=== PATIENT | male | born 1985 | race Caucasian/White ===

== ENCOUNTER 2018-03-04 00:51 | Emergency (ER) | payer SELFPAY ==
--- NOTE | 2018-03-04 01:39 | EDPHYS ---
Physician Documentation [facility] Name: Ben Dumont Age: 32 yrs Sex: Male : 1985 Arrival Date: 03/04/2018 Time: 00:53 Bed 6 Private MD: ED Physician Jhony Mora HPI: 03/04 01:54 This 32 yrs old Male presents to ER via Ambulatory with complaints of Abscess.snw 01:54 The patient presents with an abscess of the back of neck. Description: The affected snw area is small, well demarcated, mobile. Onset: The symptoms/episode began/occurred gradually. Associated signs and symptoms: The patient has no apparent associated signs or symptoms. The symptoms are located on the left trapezius. 01:56 Possible cause(s): unknown. Severity of symptoms: At their worst the symptoms were snw moderate. The patient has not experienced similar symptoms in the past. It is unknown whether or not the patient has recently seen a physician. Historical: - Allergies: 01:14 No Known Allergies; bp - Home Meds: 01:14 None [Active]; bp - PMHx: 01:14 None; bp - Immunization history:: Adult Immunizations up to date. - Social history:: Smoking status: Patient uses tobacco products, smokes one-half pack cigarettes per day. - Ebola Screening: : Patient negative for fever greater than or equal to 101.5 degrees Fahrenheit, and additional compatible Ebola Virus Disease symptoms Patient denies exposure to infectious person Patient denies travel to an Ebola-affected area in the 21 days before illness onset No symptoms or risks identified at this time. ROS: 01:52 Constitutional: Negative for fever, chills, and weight loss, Eyes: Negative for injury, snw pain, redness, and discharge, ENT: Negative for injury, pain, and discharge, Neck: Negative for injury, pain, and swelling, Cardiovascular: Negative for chest pain, palpitations, and edema, Respiratory: Negative for shortness of breath, cough, wheezing, and pleuritic chest pain, Abdomen/GI: Negative for abdominal pain, nausea, vomiting, diarrhea, and constipation, Back: Negative for injury and pain, : Negative for injury, bleeding, discharge, and swelling, MS/Extremity: Negative for injury and deformity, Neuro: Negative for headache, weakness, numbness, tingling, and seizure, Psych: Negative for depression, anxiety, suicide ideation, homicidal ideation, and hallucinations. 01:52 Skin: Positive for abscess, of the left posterior upper chest wall. Exam: 01:47 Constitutional: This is a well developed, well nourished patient who is awake, alert, snw and in no acute distress. Head/Face: Normocephalic, atraumatic. Eyes: Pupils equal round and reactive to light, extra-ocular motions intact. Lids and lashes normal. Conjunctiva and sclera are non-icteric and not injected. Cornea within normal limits. Periorbital areas with no swelling, redness, or edema. ENT: Nares patent. No nasal discharge, no septal abnormalities noted. Tympanic membranes are normal and external auditory canals are clear. Oropharynx with no redness, swelling, or masses, exudates, or evidence of obstruction, uvula midline. Mucous membranes moist. Neck: Trachea midline, no thyromegaly or masses palpated, and no cervical lymphadenopathy. Supple, full range of motion without nuchal rigidity, or vertebral point tenderness. No Meningismus. Chest/axilla: Normal chest wall appearance and motion. Nontender with no deformity. No lesions are appreciated. Cardiovascular: Regular rate and rhythm with a normal S1 and S2. No gallops, murmurs, or rubs. Normal PMI, no JVD. No pulse deficits. Respiratory: Lungs have equal breath sounds bilaterally, clear to auscultation and percussion. No rales, rhonchi or wheezes noted. No increased work of breathing, no retractions or nasal flaring. Abdomen/GI: Soft, non-tender, with normal bowel sounds. No distension or tympany. No guarding or rebound. No evidence of tenderness throughout. Back: No spinal tenderness. No costovertebral tenderness. Full range of motion. MS/ Extremity: Pulses equal, no cyanosis. Neurovascular intact. Full, normal range of motion. Neuro: Awake and alert, GCS 15, oriented to person, place, time, and situation. Cranial nerves II-XII grossly intact. Motor strength 5/5 in all extremities. Sensory grossly intact. Cerebellar exam normal. Normal gait. 01:47 Skin: Appearance: normal except for affected area, epidermal cyst without erythema to left upper medial shoulder area. Vital Signs: 01:14 BP 133 / 86; Pulse 86; Resp 14; Temp 98.6; Pulse Ox 95% ; Weight 101.6 kg; Height 5 ft. bp 7 in. (170.18 cm); 01:30 BP 126 / 82; Pulse 85; Resp 16 S; Pulse Ox 95% on R/A; cc3 01:14 Body Mass Index 35.08 (101.60 kg, 170.18 cm) bp MDM: 01:18 Patient medically screened. snw 01:53 Data reviewed: vital signs, nurses notes. Data interpreted: Pulse oximetry: on room air snw is 95 %. Interpretation: acceptable. Counseling: I had a detailed discussion with the patient and/or guardian regarding: the historical points, exam findings, and any diagnostic results supporting the discharge/admit diagnosis, the need for outpatient follow up, to return to the emergency department if symptoms worsen or persist or if there are any questions or concerns that arise at home. Special discussion: Based on the history and exam findings, there is no indication for further emergent testing or inpatient evaluation. I discussed with the patient/guardian the need to see the general surgeon for further evaluation of the symptoms. I discussed with the patient/guardian the need to see the primary care provider for further evaluation of the symptoms. Administered Medications: 01:45 Drug: Doxycycline 100 mg Route: PO; cc3 01:55 Follow up: Response: No adverse reaction cc3 01:45 Drug: Motrin 600 mg Route: PO; cc3 01:55 Follow up: Response: No adverse reaction cc3 Disposition: 03/04/18 01:38 Discharged to Home. Impression: Epidermal cyst. - Condition is Stable. - Discharge Instructions: Epidermal Cyst, Steps to Quit Smoking, Smoking Hazards, Excision of Skin Lesions, Heat Therapy. - Prescriptions for Doxycycline Hyclate 100 mg Oral Tablet - take 1 tablet by ORAL route every 12 hours; 20 tablet. Diclofenac Sodium 75 mg Oral Tablet Sustained Release - take 1 tablet by ORAL route 2 times per day; 30 tablet. Albuterol Sulfate 90 mcg/actuation - inhale 1-2 puff by INHALATION route every 4-6 hours; 1 Inhaler. - Medication Reconciliation Form, Thank You Letter, Antibiotic Education, Prescription Opioid Use form. - Follow up: Private Physician; When: 2 - 3 days; Reason: Recheck today's complaints, Continuance of care, Re-evaluation by your physician. Follow up: Emergency Department; When: As needed; Reason: Worsening of condition. Addendum: 03/05/2018 23:11 Co-signature as Attending Physician, Jhony Mora MD. g s Signatures: Lisa Raines, PACKAGING MECHANIC-C PACKAGING MECHANIC-Csnw Jhony Mora MD MD Bonifacio Muller, RN RN bp Christine Kim cc3 Corrections: (The following items were deleted from the chart) 03/04 01:59 01:38 03/04/2018 01:38 Discharged to Home. Impression: Epidermal cyst. Condition is cc3 Stable. Forms are Medication Reconciliation Form, Thank You Letter, Antibiotic Education, Prescription Opioid Use. Follow up: Private Physician; When: 2 - 3 days; Reason: Recheck today's complaints, Continuance of care, Re-evaluation by your physician. Follow up: Emergency Department; When: As needed; Reason: Worsening of condition. snw
--- NOTE | 2018-03-04 01:39 | ER ---
Nurse's Notes [facility] Name: Ben Dumont Age: 32 yrs Sex: Male : 1985 Arrival Date: 03/04/2018 Time: 00:53 Bed 6 Private MD: Diagnosis: Epidermal cyst Presentation: 03/04 01:13 Presenting complaint: Patient states: 1.5cm MASS TO CERVICAL AREA. Transition of care: bp patient was not received from another setting of care. Onset of symptoms is unknown. Risk Assessment: Do you want to hurt yourself or someone else? Patient reports no desire to harm self or others. Initial Sepsis Screen: Does the patient meet any 2 criteria? No. Patient's initial sepsis screen is negative. Does the patient have a suspected source of infection? No. Patient's initial sepsis screen is negative. Care prior to arrival: None. 01:13 Method Of Arrival: Ambulatory bp 01:13 Acuity: DAYDAY 3 bp Triage Assessment: 01:14 General: Appears in no apparent distress. comfortable, Behavior is calm, cooperative, bp appropriate for age. Pain: Complains of pain in back of neck. EENT: No deficits noted. Neuro: Level of Consciousness is awake, alert, obeys commands, Oriented to person, place, time, situation, Appropriate for age. Cardiovascular: No deficits noted. Respiratory: Airway is patent Respiratory effort is even, unlabored, Respiratory pattern is regular, symmetrical. GI: No signs and/or symptoms were reported involving the gastrointestinal system. : No signs and/or symptoms were reported regarding the genitourinary system. Derm: Abscess located on back of neck is quarter sized, has no drainage. Musculoskeletal: Circulation, motion, and sensation intact. Range of motion: intact in all extremities. Historical: - Allergies: 01:14 No Known Allergies; bp - Home Meds: 01:14 None [Active]; bp - PMHx: 01:14 None; bp - Immunization history:: Adult Immunizations up to date. - Social history:: Smoking status: Patient uses tobacco products, smokes one-half pack cigarettes per day. - Ebola Screening: : Patient negative for fever greater than or equal to 101.5 degrees Fahrenheit, and additional compatible Ebola Virus Disease symptoms Patient denies exposure to infectious person Patient denies travel to an Ebola-affected area in the 21 days before illness onset No symptoms or risks identified at this time. Screenin:18 Abuse screen: Denies threats or abuse. Denies injuries from another. Nutritional bp screening: No deficits noted. Tuberculosis screening: No symptoms or risk factors identified. Fall Risk None identified. Assessment: 01:17 General: SEE TRIAGE NOTE. STATES INCREASE SIZE/PAIN x2 DAYS, NO BLEEDING OR DRAINAGE. bp 01:55 Reassessment: Patient appears in no apparent distress at this time. Patient and/or cc3 family updated on plan of care and expected duration. Pain level reassessed. Patient is alert, oriented x 3, equal unlabored respirations, skin warm/dry/pink. Patient discharged home, went out of ER vitally stable and ambulatory. Vital Signs: 01:14 BP 133 / 86; Pulse 86; Resp 14; Temp 98.6; Pulse Ox 95% ; Weight 101.6 kg; Height 5 ft. bp 7 in. (170.18 cm); 01:30 BP 126 / 82; Pulse 85; Resp 16 S; Pulse Ox 95% on R/A; cc3 01:14 Body Mass Index 35.08 (101.60 kg, 170.18 cm) bp ED Course: 00:53 Patient arrived in ED. am2 01:13 Bonifacio Muller, WINDY is Primary Nurse. bp 01:14 Triage completed. bp 01:14 Arm band placed on. bp 01:18 Lisa Raines FNP-C is PHCP. snw 01:18 Jhony Mora MD is Attending Physician. snw 01:18 Patient has correct armband on for positive identification. Bed in low position. Call bp light in reach. Side rails up X2. 01:55 No provider procedures requiring assistance completed. Patient did not have IV access cc3 during this emergency room visit. Administered Medications: 01:45 Drug: Doxycycline 100 mg Route: PO; cc3 01:55 Follow up: Response: No adverse reaction cc3 01:45 Drug: Motrin 600 mg Route: PO; cc3 01:55 Follow up: Response: No adverse reaction cc3 Outcome: 01:38 Discharge ordered by . snw 01:55 Discharged to home ambulatory. cc3 01:55 Condition: stable 01:55 Discharge instructions given to patient, Instructed on discharge instructions, follow up and referral plans. medication usage, Demonstrated understanding of instructions, follow-up care, medications, Prescriptions given X 3. 01:59 Patient left the ED. cc3 Signatures: Lisa Raines, CONTENT STRATEGIST-C CONTENT STRATEGIST-Csnw Karin Roldan am2 Bonifacio Muller, RN RN Christine Mata cc3
[2018-03-04] MEDS ORDERED: IBUPROFEN 400 MG TAB ONE (01:50)
[2018-03-04] MEDS ORDERED: IBUPROFEN 200 MG TAB PO ONE (01:51)
[2018-03-04] MEDS ORDERED: DOXYCYCLINE 100 MG CAP PO ONE (01:51)
== END 2018-03-04 01:59 | disposition home or self-care (01) ==
LOC: ER 00:51
DX: L72.0 Epidermal cyst (principal); Z87.891 Personal history of nicotine dependence
CPT/HCPCS: 99283